=== PATIENT | male | born 2000 | race African-American/Black ===

== ENCOUNTER 2021-08-17 12:14 | Emergency (ER) | payer MEDICAID, OTHER ==
[~2021-08-17] VITALS: Ht 172.7 cm; Wt 80.0 kg
[~2021-08-17 12:14] MED LIST: ALBU17AE26
[2021-08-17] MEDS ORDERED: ACETAMINOPHEN WITH CODEINE 300/30MG TABLET PO ONE (12:45)
[2021-08-17] MEDS ORDERED: GABA-532 MT ×2 (13:24)
[2021-08-17] MEDS ORDERED: CEPH500C2 MT ×2 (13:24)
[2021-08-17] MEDS ORDERED: T3 PO (13:24)
[2021-08-17 13:45] VITALS: BP 126/84
[2021-08-17] MEDS ORDERED: BACITRACIN ZINC OINT UDPKT TOP ONE (14:00)
[2021-08-17] MEDS ORDERED: LIDOCAINE HCL/EPINEPHRINE 1%-EPI 1:100,000 20 ML VIAL INFIL ONE (14:00)
[2021-08-17] MEDS ORDERED: AMOX-424 MT (16:02)
== END 2021-08-17 16:11 | disposition home or self-care (01) ==
LOC: ER 12:14
DX: L05.01 Pilonidal cyst with abscess (principal); R03.0 Elevated blood-pressure reading, without diagnosis of hypertension; J45.909 Unspecified asthma, uncomplicated
CPT/HCPCS: 10080; 99283

== ENCOUNTER 2021-08-21 17:25 | Emergency (ER) | payer MEDICAID ==
[~2021-08-21] VITALS: Ht 162.6 cm; Wt 67.0 kg
[~2021-08-21 17:25] MED LIST changes: +AMOX-424 MT; +T3 PO
[2021-08-21 17:30] VITALS: BP 139/67
[2021-08-21] MEDS ORDERED: TOPUD MT (17:48)
== END 2021-08-21 18:04 | disposition home or self-care (01) ==
LOC: ER 17:25
DX: Z48.00 Encounter for change or removal of nonsurgical wound dressing (principal); J45.909 Unspecified asthma, uncomplicated
CPT/HCPCS: 99282

== ENCOUNTER 2024-05-15 12:30 | Emergency (ER) | payer MEDICAID, OTHER ==
[~2024-05-15] VITALS: Ht 160 cm; Wt 68.0 kg
[~2024-05-15 12:30] MED LIST changes: +TOPUD MT
[2024-05-15 12:34] VITALS: BP 145/88; PULSE 108; RESP 18; TEMP 97.9; O2SAT 99
[2024-05-15] MEDS ORDERED: SULF1TAB48 MT (13:50)
[2024-05-15] MEDS ORDERED: IBUP-2029 MT (13:50)
== END 2024-05-15 16:29 | disposition home or self-care (01) ==
LOC: ER 15:05
DX: L02.215 Cutaneous abscess of perineum (principal); J45.909 Unspecified asthma, uncomplicated; Z79.899 Other long term (current) drug therapy
CPT/HCPCS: 10060; 99283